=== PATIENT | male | born 1995 | race Caucasian/White ===

== ENCOUNTER 2017-06-18 10:39 | Inpatient (IN) | payer OTHER ==
[~2017-06-18] VITALS: Ht 188 cm; Wt 78.7 kg
[2017-06-18 12:12] LABS: HEMATOCRIT 40.8 % (38.0-50.0); MCH 30.8 PG (29.0-34.0); MCHC 36.8 G/DL (30.0-36.0); MCV 83.8 FL (86-99); MEAN PLAT.VOLUME 9.2 uM^3 (9.0-12.4); PLATELET COUNT 220 K/uL (156-360); RBC DIS.WIDTH-CV 11.2 % (11.8-14.6); RBC DIS.WIDTH-SD 34.4 % (39-53); RED BLOOD COUNT 4.87 M/uL (4.00-5.50); WHITE BLOOD COUNT 7.9 K/uL (4.1-10.2)
[2017-06-18 12:23] LABS: CHLORIDE 105 mEq/L (99-109); POTASSIUM 3.3 mEq/L (3.7-5.4); SODIUM 138 mEq/L (136-147)
[2017-06-18 12:25] LABS: GLUCOSE 84 mg/dL (70-99)
[2017-06-18 12:26] LABS: ANION GAP 17 MEQ/L (2-14)
[2017-06-18 12:28] LABS: SERUM ETHYL ALCOHOL < 10 mg/dL
[2017-06-18 12:29] LABS: GFR ESTIMATE (CALCULATED) > 59 mL/min/
[2017-06-18 12:30] LABS: UREA NITROGEN (BUN) 12 mg/dL (9-23)
[2017-06-18 13:10] LABS: ADD MEDTOX COMMENT Y; AMPHETAMINE NEGATIVE (500 ng/mL); BARBITURATES NEGATIVE (200 ng/mL); BENZODIAZEPINES NEGATIVE (150 ng/mL); COCAINE NEGATIVE (150 ng/mL); INTERNAL CONTROLS VALID? YES; METHADONE NEGATIVE (200 ng/mL); METHAMPHETAMINE NEGATIVE (500 ng/mL); OPIATES (MORPHINE) NEGATIVE (100 ng/mL); OXYCODONE NEGATIVE (100 ng/mL); PHENCYCLIDINE NEGATIVE (25 ng/mL); PROPOXYPHENE NEGATIVE (300 ng/mL); THC CANNABINOIDS PRESUMPTIVE POSITIVE (50 ng/mL); TRICYCLIC ANTIDEPRESSANTS NEGATIVE (300 ng/mL)
[2017-06-18] MEDS ORDERED: ADVIL200 M3 PO (16:12)
[2017-06-18 16:39] VITALS: BP 137/91
[2017-06-18 16:52] VITALS: BP 137/91
[2017-06-19 15:36] VITALS: BP 138/56
[2017-06-20 07:30] VITALS: BP 120/68
[2017-06-20 15:28] VITALS: BP 127/84
[2017-06-21 06:50] VITALS: BP 136/78
[2017-06-21 15:24] VITALS: BP 128/65
[2017-06-22 07:42] VITALS: BP 136/58; BP 94/62
[2017-06-22 14:55] VITALS: BP 145/86
[2017-06-22 21:05] VITALS: BP 134/86
[2017-06-23 07:52] VITALS: BP 117/63
[2017-06-23 15:54] VITALS: BP 116/60
[2017-06-24 07:39] VITALS: BP 92/64
[2017-06-24 15:57] VITALS: BP 127/84
[2017-06-25 07:47] VITALS: BP 129/73
[2017-06-25 15:52] VITALS: BP 102/55
[2017-06-26 07:45] VITALS: BP 111/56
[2017-06-26 16:17] VITALS: BP 109/62
[2017-06-27 07:50] VITALS: BP 112/55
[2017-06-27 15:20] VITALS: BP 113/58
[2017-06-28 07:43] VITALS: BP 118/57
[2017-06-28 15:17] VITALS: BP 106/70
[2017-06-29 07:51] VITALS: BP 132/63
[2017-06-29] MEDS ORDERED: SEROQUEL300 MG PO (10:29)
[2017-06-29] MEDS ORDERED: QUETIAPINE FUM200 MG PO (10:29)
== END 2017-06-29 11:06 | disposition home or self-care (01) | DRG 885 ==
LOC: EME 10:39 → 1WEST 15:06 → EDOF 15:06 → 1WEST 16:19 → ENRESERV 18:15 → 1WEST 06-29 11:06
PROVIDERS: Emergency Medicine
DX: F20.9 Schizophrenia, unspecified (principal); R45.851 Suicidal ideations; F32.9 Major depressive disorder, single episode, unspecified; F22 Delusional disorders; G47.00 Insomnia, unspecified; F12.10 Cannabis abuse, uncomplicated; F16.10 Hallucinogen abuse, uncomplicated; F90.9 Attention-deficit hyperactivity disorder, unspecified type; G93.0 Cerebral cysts; Z81.8 Family history of other mental and behavioral disorders
CPT/HCPCS: 70450; 80048; 84999; 85027; 90839; 97150 GO; 97530 GO; 99281; 99285; G0480